=== PATIENT | female | born 1980 | race African-American/Black ===

== ENCOUNTER 2017-09-03 22:48 | Emergency (ER) | payer MEDICAID, OTHER ==
[~2017-09-03] VITALS: Ht 157.5 cm; Wt 86.0 kg
[2017-09-03 23:49] VITALS: BP 141/91
== END 2017-09-03 23:53 | disposition home or self-care (01) ==
LOC: ER 22:48
DX: H10.029 Other mucopurulent conjunctivitis, unspecified eye (principal); I10 Essential (primary) hypertension
CPT/HCPCS: 99283

== ENCOUNTER 2018-08-22 12:54 | Emergency (ER) | payer OTHER ==
[~2018-08-22] VITALS: Ht 162.6 cm; Wt 86.2 kg
[2018-08-22 13:13] VITALS: BP 119/83
[2018-08-22] MEDS ORDERED: CEPHALEXIN 250MG CAPSULE PO ONE (15:15)
== END 2018-08-22 15:38 | disposition home or self-care (01) ==
LOC: ER 12:54
DX: L03.113 Cellulitis of right upper limb (principal); I10 Essential (primary) hypertension; Z90.49 Acquired absence of other specified parts of digestive tract
CPT/HCPCS: 99282; 99283

== ENCOUNTER 2021-06-01 12:06 | Emergency (ER) | payer MEDICAID, OTHER ==
[~2021-06-01] VITALS: Ht 157.5 cm; Wt 78.0 kg
[2021-06-01 12:13] VITALS: BP 130/93
== END 2021-06-01 14:42 | disposition home or self-care (01) ==
LOC: ER 12:06
DX: U07.1 COVID-19 (principal); I10 Essential (primary) hypertension; Z98.890 Other specified postprocedural states
CPT/HCPCS: 82962; 99281

== ENCOUNTER 2023-02-03 21:00 | Emergency (ER) | payer MEDICAID ==
[~2023-02-03] VITALS: Ht 157.5 cm; Wt 84.0 kg
[2023-02-03] MEDS ORDERED: CLONIDINE 0.1MG TABLET PO NR (22:30)
[2023-02-03] MEDS ORDERED: KETOROLAC 60MG/2ML VIAL IM ONE (22:30)
[2023-02-03] MEDS ORDERED: CLONIDINE 0.2MG TABLET PO ONE (22:30)
[2023-02-03 23:04] LABS: CHLORIDE 110 mEq/L (98-107)
[2023-02-03 23:09] LABS: EOSINOPHILS % 5.8 % (0.0-5.0); HEMATOCRIT. 27.8 % (36.0-48.0); HEMOGLOBIN. 8.4 g/dL (12.0-16.0); LYMPHOCYTES % 37.6 % (20.0-50.0); MEAN CORPUSCULAR HEMOGLOBIN 21.2 pg (28.0-32.0); MEAN CORPUSCULAR VOLUME 70.4 fL (81.0-99.0); MEAN PLATELET VOLUME 8.5 fl (7.4-10.4); NEUTROPHILS % 44.6 % (40.0-76.0); PLATELET 215 x1000/uL (130-400); RED BLOOD CELL COUNT 3.95 mill/uL (4.2-5.4); RED CELL DISTRIBUTION WIDTH 23.4 % (11.6-14.6)
[2023-02-03 23:20] LABS: HCG SCREEN NEGATIVE
[2023-02-03 23:43] LABS: PLATELET ESTIMATE NORMAL
[2023-02-03 23:54] VITALS: BP 149/68
[2023-02-03] MEDS ORDERED: IBUP-2028 MT (23:59)
== END 2023-02-04 00:08 | disposition home or self-care (01) ==
LOC: ER 21:00
DX: I10 Essential (primary) hypertension (principal); Z98.890 Other specified postprocedural states
CPT/HCPCS: 36415; 80053; 84703; 85025; 96372; 99283; J1885; Z7610

== ENCOUNTER 2023-10-06 20:47 | Emergency (ER) | payer MEDICAID ==
[~2023-10-06] VITALS: Ht 160 cm; Wt 82.0 kg
[~2023-10-06 20:47] MED LIST: IBUP-2028 MT
[2023-10-06 21:00] VITALS: BP 191/107; TEMP 98.4; O2SAT 100
[2023-10-06 21:08] VITALS: PULSE 74; RESP 16
[2023-10-06 22:09] LABS: CLARITY URINE CLOUDY (CLEAR); COLOR URINE YELLOW (YELLOW); GLUCOSE URINE NEGATIVE (NEGATIVE); KETONES URINE NEGATIVE (NEGATIVE); LEUKOCYTE ESTERASE URINE NEGATIVE (NEGATIVE); NITRITE URINE NEGATIVE (NEGATIVE); OCCULT BLOOD URINE NEGATIVE (NEGATIVE); PH URINE 6.5 (4.5-8.0); PROTEIN URINE NEGATIVE (NEGATIVE); SPECIFIC GRAVITY URINE 1.025 (1.005-1.030)
[2023-10-06 22:35] LABS: WBC URINE 0-2 /hpf (0-2)
[2023-10-06 22:36] LABS: RBC URINE 0-2 /hpf (0-2); SQUAMOUS EPITHELIAL CELL URINE RARE /lpf (RARE/1+)
[2023-10-06 22:37] LABS: BACTERIA URINE TRACE
[2023-10-06] MEDS ORDERED: IBUP-2029 MT (23:52)
== END 2023-10-07 00:05 | disposition home or self-care (01) ==
LOC: ER 20:47
DX: R07.89 Other chest pain (principal); R05.9 Cough, unspecified; I10 Essential (primary) hypertension; Z98.890 Other specified postprocedural states
CPT/HCPCS: 71045; 81003; 81025; 99284

== ENCOUNTER 2024-04-08 19:24 | Emergency (ER) | payer MEDICAID ==
[~2024-04-08] VITALS: Ht 162.6 cm; Wt 88.0 kg
[~2024-04-08 19:24] MED LIST changes: +IBUP-2029 MT
[2024-04-08 19:42] VITALS: BP 190/129; TEMP 98.3; O2SAT 100
[2024-04-08 20:28] LABS: CLARITY URINE CLOUDY (CLEAR); COLOR URINE YELLOW (YELLOW); GLUCOSE URINE NEGATIVE (NEGATIVE); KETONES URINE NEGATIVE (NEGATIVE); LEUKOCYTE ESTERASE URINE 2+ (NEGATIVE); NITRITE URINE NEGATIVE (NEGATIVE); OCCULT BLOOD URINE NEGATIVE (NEGATIVE); PH URINE 6.5 (4.5-8.0); PROTEIN URINE NEGATIVE (NEGATIVE); SPECIFIC GRAVITY URINE 1.028 (1.005-1.030)
[2024-04-08 20:56] LABS: BACTERIA URINE 1+; RBC URINE NONE SEEN /hpf (0-2); SQUAMOUS EPITHELIAL CELL URINE 1+ /lpf (RARE/1+); WBC URINE 15-25 /hpf (0-2)
[2024-04-08] MEDS ORDERED: CEFP200T13 MT (21:07)
[2024-04-08 21:15] VITALS: PULSE 73; RESP 16; O2SAT 100
== END 2024-04-08 21:16 | disposition home or self-care (01) ==
LOC: ER 19:29
DX: N12 Tubulo-interstitial nephritis, not specified as acute or chronic (principal); I10 Essential (primary) hypertension
CPT/HCPCS: 81003; 81025; 99283

== ENCOUNTER 2025-05-31 10:21 | Emergency (ER) | payer MEDICAID ==
[~2025-05-31] VITALS: Ht 160 cm; Wt 190.0 kg
[~2025-05-31 10:21] MED LIST changes: +AMLO10TA80 MT; +ASPI-1497 MT; +CEFP200T13 MT; +HYDR50TA40 MT; -IBUP-2028 MT; +LOSA50TA41 MT; +NITR-87 MT
[2025-05-31 10:23] VITALS: O2SAT 100
[2025-05-31] MEDS: KETOROLAC 15MG/ML VIAL IV ONE (11:15)
[2025-05-31] MEDS: CLONIDINE 0.1MG TABLET PO ONE (11:15)
[2025-05-31] MEDS: SODIUM CHLORIDE 0.9% 1,000 ML IV ONE (11:15)
[2025-05-31 11:53] LABS: CREATININE 0.9 mg/dL (0.6-1.0); UREA NITROGEN BLOOD 13 mg/dL (9-23)
[2025-05-31 11:55] LABS: TROPONIN I HIGH SENSITIVITY < 4 ng/L (3.0-34)
[2025-05-31 12:01] LABS: HCG SCREEN NEGATIVE
[2025-05-31 14:17] LABS: BASOPHILS % 1.3 % (0.0-2.0); EOSINOPHILS % 2.5 % (0.0-5.0); HEMATOCRIT. 39.5 % (36.0-48.0); HEMOGLOBIN. 12.8 g/dL (12.0-16.0); LYMPHOCYTES % 26.9 % (20.0-50.0); MEAN PLATELET VOLUME 9.9 fl (7.4-10.4); MONOCYTES % 8.4 % (2.0-8.0); NEUTROPHILS % 60.9 % (40.0-76.0); PLATELET 263 x1000/uL (130-400); RED BLOOD CELL COUNT 4.11 mill/uL (4.2-5.4); RED CELL DISTRIBUTION WIDTH 13.8 % (11.6-14.6)
[2025-05-31] MEDS ORDERED: ACET-3800 MT (14:38)
[2025-05-31 14:55] VITALS: BP 133/99; PULSE 84; RESP 18; TEMP 36.8; O2SAT 99
== END 2025-05-31 14:59 | disposition home or self-care (01) ==
LOC: ER 10:21
DX: R51.9 Headache, unspecified (principal); I10 Essential (primary) hypertension; Z79.82 Long term (current) use of aspirin; Z79.899 Other long term (current) drug therapy; Z98.890 Other specified postprocedural states
CPT/HCPCS: 99285; 96374; 70450; 96361; 80048; 81025; 84703; 85025; 84484; 36415; J1885; J7030

== ENCOUNTER 2025-09-02 22:01 | Emergency (ER) | payer MEDICAID ==
[~2025-09-02] VITALS: Ht 160 cm; Wt 88.2 kg
[~2025-09-02 22:01] MED LIST changes: +ACET-3800 MT; +IBUP-1455 MT; -IBUP-2029 MT
[2025-09-02 22:04] VITALS: TEMP 36.8; O2SAT 100
[2025-09-02] MEDS: HYDRALAZINE HCL 10MG TABLET PO ONE (23:17)
[2025-09-02] MEDS: NIFEDIPINE XL 30MG TAB PO ONE (23:17)
[2025-09-03 00:21] VITALS: BP 160/100; PULSE 71; RESP 14; O2SAT 100
== END 2025-09-03 00:29 | disposition home or self-care (01) ==
LOC: ER 22:01
DX: I10 Essential (primary) hypertension (principal); Z79.82 Long term (current) use of aspirin; Z79.899 Other long term (current) drug therapy; Z91.148 Patient's other noncompliance with medication regimen for other reason
CPT/HCPCS: 93005; 99283